=== PATIENT | female | born 1975 | race Hispanic/Latino ===

== ENCOUNTER 2017-04-03 02:25 | Emergency (ER) | payer SELFPAY ==
[2017-04-03] MEDS ORDERED: Nitroglycerin 2% Ointment 1 INCH/1 GM Packet ONE (02:50)
[2017-04-03 02:51] LABS: #Basophils 0.1 thou/uL (0.0-0.2); #Eosinphils 0.1 thou/uL (0.0-0.7); #Lymphocytes 5.1 thou/uL (1.20-3.40); #Monocytes 0.7 thou/uL (0.11-0.59); #Neutrophils 6.3 thou/uL (1.40-6.50); %Basophils 0.9 % (0.0-1.0); %Eosinophils 0.9 % (0.0-10.0); %Lymphocytes 41.1 % (21.0-51.0); %Monocytes 5.9 % (0.0-10.0); Hematocrit 48.2 % (36.0-47.0); Mean Platelet Volume 8.2 fL (7.4-10.4); Red Blood Cell (RBC) Count 5.29 mill/uL (4.20-5.40); White Blood Cell (WBC) Count 12.3 thou/uL (4.8-10.8)
[2017-04-03 03:12] LABS: Troponin I Less than 0.010 ng/mL (< 0.028)
[2017-04-03 03:17] LABS: ALT (SGPT) 21 U/L (8-55); AST (SGOT) 24 U/L (5-34); Alkaline Phosphatase 137 U/L (40-150); Anion Gap 18 mmol/L (10-20); BUN (Urea Nitrogen) 11 mg/dL (7.0-18.7); Bilirubin, Total 0.9 mg/dL (0.2-1.2); Calc. Creatinine Clearance 0 mL/min (70-130); Calcium 10.1 mg/dL (7.8-10.44); Carbon Dioxide 23 mmol/L (22-29); Chloride 96 mmol/L (98-107); Estimated GFR-MDRD 81; Globulin 4.7 g/dL (2.4-3.5); Protein, Total 9.1 g/dL (6.0-8.3)
[2017-04-03] MEDS ORDERED: Ketorolac Tromethamine 30 MG/ML VIAL ONE (03:29)
--- NOTE | 2017-04-03 08:30 | RAD ---
PORTABLE AP CHEST XRAY: DATE: 04/03/17. HISTORY: Chest pain. COMPARISON: 11/21/14. FINDINGS: Cardiac silhouette and pulmonary vasculature are within normal limits. The lungs remain clear. Ther e has been no interval change from the prior study. IMPRESSION: No acute cardiopulmonary process. POS: [facility]
--- NOTE | 2017-05-11 14:13 | EKG ---
Test Reason : CHEST PAIN Blood Pressure : / mmHG Vent. Rate : 107 BPM Atrial Rate : 107 BPM P-R Int : 120 ms QRS Dur : 082 ms QT Int : 338 ms P-R-T Axes : 064 -51 066 degrees QTc Int : 451 ms Sinus tachycardia Left axis deviation Abnormal ECG Confirmed by DESTINEE VINES D.O. ([id number]), newspaper copy editor DIXIE ZHU ([id number]) on 05/11/2017 2:12:50 PM Referred By: Confirmed By:DESTINEE VINES D.O.
== END 2017-04-03 04:44 | disposition home or self-care (01) ==
LOC: ERS 02:25
DX: S29.011A Strain of muscle and tendon of front wall of thorax, initial encounter (principal); E78.5 Hyperlipidemia, unspecified; I10 Essential (primary) hypertension; E11.9 Type 2 diabetes mellitus without complications; F17.210 Nicotine dependence, cigarettes, uncomplicated; Z79.4 Long term (current) use of insulin; Z79.899 Other long term (current) drug therapy; X58.XXXA Exposure to other specified factors, initial encounter
CPT/HCPCS: 71010; 80053; 82553; 84443; 84484; 84703; 85025; 85379; 93005; 93010; 96374; 99406; J1885

== ENCOUNTER 2017-07-06 11:40 | Emergency (ER) | payer SELFPAY ==
[2017-07-06 12:44] LABS: #Basophils 0.1 thou/uL (0.0-0.2); #Eosinphils 0.2 thou/uL (0.0-0.7); #Lymphocytes 2.3 thou/uL (1.20-3.40); #Monocytes 0.6 thou/uL (0.11-0.59); #Neutrophils 4.3 thou/uL (1.40-6.50); %Basophils 1.1 % (0.0-1.0); %Eosinophils 2.9 % (0.0-10.0); %Lymphocytes 30.6 % (21.0-51.0); %Neutrophils 57.4 % (42.0-75.0); Hemoglobin 15.5 g/dL (12.0-16.0); Mean Corpuscular HGB CONC 34.3 g/dL (32.0-36.0); Mean Corpuscular Hemoglobin 32.2 pg (27.0-31.0); Mean Platelet Volume 7.1 fL (7.4-10.4); Platelet Count 346 thou/uL (130-400); RBC Distribution Width 11.9 % (11.5-14.5); Red Blood Cell (RBC) Count 4.83 mill/uL (4.20-5.40); White Blood Cell (WBC) Count 7.4 thou/uL (4.8-10.8)
[2017-07-06 13:13] LABS: Bilirubin Negative (Negative); Blood, Urine Trace (Negative); Clarity CLOUDY (Clear); Glucose, Urine (Dipstick) 500 mg/dL (Negative); Leukocyte Negative (Negative); Nitrite Negative (Negative); Protein, Urine (Dipstick) Trace mg/dL (Neg-Trace); Specific Gravity, Urine 1.044 (1.002-1.036)
[2017-07-06 13:16] LABS: Bacteria/HPF 1+ HPF (None Seen); Hyaline Casts/LPF 0-3 HYALINE CAST LPF (0-3 Hyaline); Pathc Cast-AUWi Flag 0.13 (0-2.49)
[2017-07-06 13:16] LABS: ALT (SGPT) 25 U/L (8-55); AST (SGOT) 15 U/L (5-34); Albumin 3.9 g/dL (3.5-5.0); Alkaline Phosphatase 135 U/L (40-150); Anion Gap 15 mmol/L (10-20); BUN (Urea Nitrogen) 14 mg/dL (7.0-18.7); Bilirubin, Total 0.5 mg/dL (0.2-1.2); Calc. Creatinine Clearance 0 mL/min (70-130); Calcium 9.5 mg/dL (7.8-10.44); Carbon Dioxide 25 mmol/L (22-29); Chloride 98 mmol/L (98-107); Estimated GFR-MDRD Greater than 90; Globulin 3.7 g/dL (2.4-3.5); Glucose 331 mg/dL (70-105); Lipase 12 U/L (8-78); Potassium 3.7 mmol/L (3.5-5.1); Protein, Total 7.6 g/dL (6.0-8.3); Sodium 134 mmol/L (136-145)
[2017-07-06 13:18] LABS: Yeast-AUWi Flag 119.5 (0-25.0)
[2017-07-06 13:31] LABS: Yeast-All Forms None Seen HPF (None Seen)
== END 2017-07-06 14:23 | disposition left against medical advice (07) ==
LOC: ERS 11:40
DX: Z53.21 Procedure and treatment not carried out due to patient leaving prior to being seen by health care provider (principal)
CPT/HCPCS: 36415; 80053; 81003; 81015; 83690; 85025

== ENCOUNTER 2019-03-01 21:52 | Emergency (ER) | payer SELFPAY ==
[2019-03-01 22:23] LABS: Bacteria/HPF None Seen HPF (None Seen); Bilirubin Negative (Negative); Blood, Urine 1+ (Negative); Clarity Clear (Clear); Glucose, Urine (Dipstick) Greater than 1000 mg/dL (Negative); Leukocyte Negative Leu/uL (Negative); Nitrite Negative (Negative); Protein, Urine (Dipstick) 30 mg/dL (Neg-Trace); Squamous Epithelial 0-3 HPF (0-3); Urobilinogen Normal mg/dL (Less than 2); WBC/HPF 0-3 HPF (0-3)
[2019-03-01] MEDS ORDERED: Ondansetron PF 4 MG/2 ML Vial ONE (22:27)
[2019-03-01] MEDS ORDERED: Ketorolac Tromethamine 30 MG/ML VIAL ONE (22:27)
[2019-03-01 22:56] LABS: #Basophils 0.1 thou/uL (0.0-0.2); #Eosinphils 0.3 thou/uL (0.0-0.7); #Monocytes 0.6 thou/uL (0.11-0.59); #Neutrophils 4.2 thou/uL (1.40-6.50); %Basophils 1.1 % (0.0-1.0); %Lymphocytes 43.7 % (21.0-51.0); %Monocytes 6.3 % (0.0-10.0); %Neutrophils 45.9 % (42.0-75.0); Hemoglobin 14.8 g/dL (12.0-16.0); Mean Corpuscular HGB CONC 35.7 g/dL (32.0-36.0); Mean Corpuscular Hemoglobin 32.1 pg (27.0-31.0); Mean Corpuscular Volume 89.9 fL (78.0-98.0); Mean Platelet Volume 7.6 fL (7.4-10.4); Platelet Count 293 thou/uL (130-400); RBC Distribution Width 11.5 % (11.5-14.5); Red Blood Cell (RBC) Count 4.61 mill/uL (4.20-5.40); White Blood Cell (WBC) Count 9.2 thou/uL (4.8-10.8)
[2019-03-01 23:13] LABS: ALT (SGPT) 27 U/L (8-55); AST (SGOT) 17 U/L (5-34); Albumin 4.1 g/dL (3.5-5.0); Alkaline Phosphatase 148 U/L (40-110); Anion Gap 14 mmol/L (10-20); BUN (Urea Nitrogen) 14 mg/dL (7.0-18.7); Bilirubin, Total 0.3 mg/dL (0.2-1.2); CK (CPK) 133 U/L (29-168); Calc. Creatinine Clearance 0 mL/min (70-130); Calcium 10.1 mg/dL (7.8-10.44); Carbon Dioxide 25 mmol/L (22-29); Chloride 99 mmol/L (98-107); Estimated GFR-MDRD 74; Globulin 4.1 g/dL (2.4-3.5); Glucose 286 mg/dL (70-105); Lipase 27 U/L (8-78); Potassium 3.6 mmol/L (3.5-5.1); Protein, Total 8.2 g/dL (6.0-8.3); Sodium 134 mmol/L (136-145)
[2019-03-01] MEDS ORDERED: diphenhydrAMINE 50 MG/ML VIAL ONE (23:19)
--- NOTE | 2019-03-01 23:31 | CT ---
CT ABDOMEN AND PELVIS WITH IV CONTRAST: 03/01/19 HISTORY: Right lower quadrant abdominal pain and diarrhea. COMPARISON: 01/18/17. FINDINGS: The lung bases are clear. Vascular calcifications and atherosclerotic plaque is seen in the abdominal aorta and involving the iliac arteries. The liver demonstrates diminished attenuation likely related to diffuse fatty infiltration. Post chol ecystectomy changes are noted. There is an irregular rounded calcification seen just to the inferior aspect of the spleen. This is s table when compared to the prior study in 2017. 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 Smaller calcifications also seen adjacent to the splenic artery just proximal to thi s region which may represent an additional small calcified splenic artery aneurysm. The spleen, pancreas, bilateral adrenal glands, and kidneys demonstrate a normal CT appearance. The urinary bladder is decompressed and not well evaluated on this exam. There is evidence of hysterectomy. Loops of small bowel are normal in caliber. The appendix is visualized and normal in caliber. No free fluid, fluid collection, or lymphadenopathy seen in the abdomen or pelvis. There has been no interval change when compared to prior exam. IMPRESSION: 1. Stable CT abdomen and pelvis without acute abnormality seen. 2. Cholecystectomy. 3. Atherosclerotic vascular calcifications and plaque. 4. Hysterectomy. POS: OFF
== END 2019-03-02 00:38 | disposition home or self-care (01) ==
LOC: ERS 21:52
DX: R10.31 Right lower quadrant pain (principal); E11.9 Type 2 diabetes mellitus without complications; E78.00 Pure hypercholesterolemia, unspecified; F17.210 Nicotine dependence, cigarettes, uncomplicated; Z79.4 Long term (current) use of insulin
CPT/HCPCS: 74177; 80053; 81003; 81015; 82550; 83690; 85025; 96361; 96374; 96375; J1200; J1885; J2405

== ENCOUNTER 2019-03-04 15:43 | Emergency (ER) | payer SELFPAY ==
[2019-03-04] MEDS ORDERED: Morphine 10 MG/ML VIAL ONE (16:20)
[2019-03-04] MEDS ORDERED: Ondansetron ODT 8 MG TAB ONE (16:21)
[2019-03-04 16:42] LABS: Bacteria/HPF None Seen HPF (None Seen); Bilirubin Negative (Negative); Blood, Urine Trace (Negative); Clarity Clear (Clear); Glucose, Urine (Dipstick) Greater than 1000 mg/dL (Negative); Leukocyte Negative Leu/uL (Negative); Nitrite Negative (Negative); Protein, Urine (Dipstick) 20 mg/dL (Neg-Trace); Squamous Epithelial 0-3 HPF (0-3); Urobilinogen Normal mg/dL (Less than 2); WBC/HPF 0-3 HPF (0-3)
--- NOTE | 2019-03-04 17:45 | RAD ---
Exam: One view chest 2 views abdomen FINDINGS: One view chest: Normal cardiac silhouette. Lungs and pleural spaces are clear. No pneumothorax. No osseous abnormalit ies Two views abdomen: Nonspecific bowel gas pattern. No suspicious densities in the abdomen or pelvis. No differential air- fluid levels. No pneumoperitoneum. Surgical clips in the right upper quadrant. No osseous abnormalities IMPRESSION: 1. No acute cardiopulmonary process. 2. Nonspecific bowel gas pattern. Patient had a recent CT, 3 days ago which was also reported to be n egative for acute abnormality. Transcribed Date/Time: 03/04/2019 5:59 PM
== END 2019-03-04 18:00 | disposition home or self-care (01) ==
LOC: ERS 15:43
DX: R10.31 Right lower quadrant pain (principal); R11.10 Vomiting, unspecified; E11.9 Type 2 diabetes mellitus without complications; E78.5 Hyperlipidemia, unspecified; I10 Essential (primary) hypertension; F17.210 Nicotine dependence, cigarettes, uncomplicated
CPT/HCPCS: 74022; 81003; 81015; 96372; J2270

== ENCOUNTER 2020-07-27 02:30 | Emergency (ER) | payer SELFPAY ==
[2020-07-27] MEDS ORDERED: predniSONE 20 MG TAB ONE (02:44)
[2020-07-27] MEDS ORDERED: Famotidine 20 MG TAB ONE (02:44)
== END 2020-07-27 04:28 | disposition short-term general hospital (02) ==
LOC: ERS 02:30
DX: T78.40XA Allergy, unspecified, initial encounter (principal); R00.2 Palpitations; E11.9 Type 2 diabetes mellitus without complications; E78.5 Hyperlipidemia, unspecified; I10 Essential (primary) hypertension; F17.210 Nicotine dependence, cigarettes, uncomplicated; Z79.82 Long term (current) use of aspirin; Z79.4 Long term (current) use of insulin
CPT/HCPCS: 93005; J7512

== ENCOUNTER 2020-09-27 14:25 | Emergency (ER) | payer SELFPAY ==
[2020-09-27] MEDS ORDERED: Dexamethasone 10 MG/ML VIAL ONE (15:21)
== END 2020-09-27 15:28 | disposition home or self-care (01) ==
LOC: ERS 14:25
DX: J02.9 Acute pharyngitis, unspecified (principal); E11.9 Type 2 diabetes mellitus without complications; E78.5 Hyperlipidemia, unspecified; I10 Essential (primary) hypertension; F17.210 Nicotine dependence, cigarettes, uncomplicated; Z79.4 Long term (current) use of insulin; Z79.82 Long term (current) use of aspirin
CPT/HCPCS: 99281; J1100